=== PATIENT | female | born 1955 | race Caucasian/White ===

== ENCOUNTER 2018-01-13 15:07 | Emergency (ER) | payer MEDICAID ==
[2018-01-13 15:08] VITALS: BMI 23.4
[2018-01-13] MEDS ORDERED: Sodium Chloride 0.9% 500 ML IV ONE (15:59)
[2018-01-13 16:14] LABS: BASO % 0.7 % (0.0-2.0); EOS # 0.5 K/uL (0.0-0.7); EOS % 7.8 % (0.0-4.0); HEMOGLOBIN 12.1 g/dL (11.0-16.0); LYMPH # 3.3 K/uL (1.0-4.3); LYMPH % 55.8 % (20.0-40.0); MEAN CELL VOLUME 85.7 fL (81.0-99.0); MEAN PLATELET VOLUME 6.4 fL (7.2-11.7); MONO # 0.4 K/uL (0.0-0.8); MONO % 6.5 % (0.0-10.0); NEUT # 1.7 K/uL (1.8-7.0); NEUT % 29.2 % (50.0-75.0); NRBC % 0.1 % (0.0-2.0); RBC 4.04 Mil/uL (3.80-5.20); RED CELL DISTRIBUTION WIDTH 12.1 % (11.5-14.5)
[2018-01-13 16:26] LABS: ALB/GLOB RATIO 1.4 (1.0-2.1); ALBUMIN 4.4 g/dL (3.5-5.0); ALT/SGPT 21 U/L (9-52); AST/SGOT 21 U/L (14-36); BLOOD UREA NITROGEN 9 mg/dL (7-17); CALCIUM 9.6 mg/dl (8.6-10.4); GFR NON-AFRICAN AMERICAN > 60
--- NOTE | 2018-01-13 16:38 | RAD ---
Date of service: 01/13/2018 HISTORY: dizziness COMPARISON: No prior. FINDINGS: LUNGS: No active pulmonary disease. PLEURA: No significant pleural effusion identified, no pneumothorax apparent. CARDIOVASCULAR: Normal. OSSEOUS STRUCTURES: Thoracic spondylosis. VISUALIZED UPPER ABDOMEN: Normal. OTHER FINDINGS: None. IMPRESSION: No acute cardiopulmonary pathology.
--- NOTE | 2018-01-13 16:45 | C.PDOC ---
History Of Present Illness 62-year-old female presents to the ED for evaluation of dizziness which began today. Patient states she woke up this morning and started feeling dizzy as she was ambulating around. She describes a room spinning sensation which caused her to fall backward and hit her head. Patient is unsure of whether she lost consciousness. Patient denies shortness of breath, abdominal pain, nausea, vomiting, focal weakness. Time Seen by Provider: 01/13/18 15:39 Chief Complaint (Nursing): Dizziness/Lightheaded History Per: Patient History/Exam Limitations: no limitations Onset/Duration Of Symptoms: Hrs Current Symptoms Are (Timing): Still Present Additional History Per: Patient Past Medical History Reviewed: Historical Data, Nursing Documentation, Vital Signs Vital Signs: Last Vital Signs Temp 97.9 F 01/13/18 15:22 Pulse 84 01/13/18 15:22 Resp 20 01/13/18 15:22 BP 136/81 01/13/18 15:22 Pulse Ox 98 01/13/18 15:22 - Medical History PMH: Asthma, Hypercholesterolemia, Hypothyroidism, Migraine, Rheumatoid Arthritis Denies: Chronic Kidney Disease Surgical History: No Surg Hx - [facility] Procedures CLOSED ENDOSCOPIC BIOPSY OF LARGE INTESTINE (06/12/13) ESOPHAGOGASTRODUODENOSCOPY [EGD] W/CLOSED BIOPSY (06/26/13) Family History: States: Unknown Family Hx - Social History Hx Alcohol Use: No Hx Substance Use: No - Immunization History Hx Tetanus Toxoid Vaccination: No Hx Influenza Vaccination: No Review Of Systems Constitutional: Negative for: Fever, Chills Cardiovascular: Negative for: Chest Pain Respiratory: Negative for: Cough, Shortness of Breath, SOB with Excertion, Wheezing Gastrointestinal: Negative for: Nausea, Vomiting, Abdominal Pain Genitourinary: Negative for: Dysuria Neurological: Positive for: Dizziness. Negative for: Weakness Psych: Negative for: Anxiety, Depression Physical Exam - Physical Exam Appears: Non-toxic, No Acute Distress Skin: Normal Color, Warm, Dry Head: Atraumatic, Normacephalic Eye(s): bilateral: Other (horizontal nystagmus ) Oral Mucosa: Moist Neck: Normal ROM, Supple Chest: Symmetrical, No Deformity, No Tenderness Cardiovascular: Rhythm Regular, No Murmur Respiratory: Normal Breath Sounds, No Rales, No Rhonchi, No Wheezing Extremity: Normal ROM, Capillary Refill (less than 2 seconds ) Neurological/Psych: Oriented x3, Normal Speech, Normal Cognition Gait: Steady ED Course And Treatment - Laboratory Results Result Diagrams: 01/13/18 16:09 01/13/18 16:09 ECG: Interpreted By Me, Viewed By Me ECG Rhythm: Sinus Rhythm Interpretation Of ECG: Normal Sinus Rhythm at rate 83bpm. Normal intervals. No ST changes. Rate From EC O2 Sat by Pulse Oximetry: 98 (on RA) Pulse Ox Interpretation: Normal - Other Rad CXR X-Ray: Viewed By Me, Read By Radiologist Interpretation: Date of service: 01/13/2018. HISTORY: dizziness. COMPARISON: No prior. FINDINGS: LUNGS: No active pulmonary disease. PLEURA: No sig nificant pleural effusion identified, no pneumothorax apparent. CARDIOVASCULAR: Normal. OSSEOUS STRUCTURES: Thoracic spondylosis. VISUALIZED UPPER ABDOMEN: Normal. OTHER FINDINGS: None. IMPRESSION: No acute cardiopulmonary pathology. Medical Decision Making Medical Decision Making: Impression: 62 year old female with dizziness Plan: * bloodwork * CXR * CT Head * EKG * Antivert PO * IV Fluids * reassess and disposition Progress: Bloodwork, CXR, CT Head, EKG ordered and reviewed. Antivert PO and IV Fluids given. 5:01PM CT head: No intracranial hemorrhage or mass effect. No calvarial fracture. Moderate cerebral atrophy. Paranasal sinus inflammatory changes Cxray: No acute cardiopulmonary pathology. Labs reviewed. Patient persistently dizzy when ambulating. Will transfer to tele observation. Disposition - Disposition Disposition: HOSPITALIZED Disposition Time: 17:19 Condition: FAIR Forms: [facility] [employer] (Indonesian) - Clinical Impression Clinical Impression: Dizziness - Scribe Statement The provider has reviewed the documentation as recorded by the Scribe (Suzie Sage) Provider Attestation: All medical record entries made by the Scribe were at my direction and personally dictated by me. I have reviewed the chart and agree that the record accurately reflects my personal performance of the history, physical exam, medical decision making, and the department course for this patient. I have also personally directed, reviewed, and agree with the discharge instructions and d isposition.
--- NOTE | 2018-01-13 16:58 | CT ---
Date of service: 01/13/2018 PROCEDURE: CT HEAD WITHOUT CONTRAST. HISTORY: head injury COMPARISON: None available. TECHNIQUE: Axial computed tomography images were obtained through the head/brain without intravenous contrast. Radiation dose: Total exam DLP = mGy-cm. This CT exam was performed using one or more of the following dose reduction techniques: Automated exposure control, adjustment of the mA and/or kV according to patient size, and/or use of iterative reconstruction technique. FINDINGS: HEMORRHAGE: No intracranial hemorrhage. BRAIN: No mass effect or edema. There is generalized cerebral atrophy. No chronic microvascular ischemic changes are appreciated. VENTRICLES: Unremarkable. No hydrocephalus. CALVARIUM: A benign bifrontal internal cortical hyperostoses noted. PARANASAL SINUSES: Ethmoidal and maxillary inflammatory changes noted. A prominent developmental right pneumatized middle turbinates also suggested. MASTOID AIR CELLS: Unremarkable as visualized. No inflammatory changes. OTHER FINDINGS: None. IMPRESSION: No intracranial hemorrhage or mass effect. No calvarial fracture. Moderate cerebral atrophy. Paranasal sinus inflammatory changes
[2018-01-13 17:59] VITALS: O2SAT 99
[2018-01-13 19:41] VITALS: BP 140/70; PULSE 68; RESP 17; TEMP 97.9
--- NOTE | 2018-01-13 22:09 | CP.PCM.HP ---
Past Patient History - Past Medical History & Family History Past Medical History?: Yes - Past Social History Smoking Status: Never Smoked - CARDIAC Hx Hypercholesterolemia: Yes - PULMONARY Hx Asthma: Yes - NEUROLOGICAL Hx Migraine: Yes - HEENT Hx HEENT Problems: Yes Hx Cataracts: Yes Hx Glaucoma: Yes (RIGHT EYE) Hx Macular Degeneration: (RIGHT EYE) - RENAL Hx Chronic Kidney Disease: No - ENDOCRINE/METABOLIC Hx Hypothyroidism: Yes - HEMATOLOGICAL/ONCOLOGICAL Hx Blood Disorders: No - INTEGUMENTARY Hx Dermatological Problems: No - MUSCULOSKELETAL/RHEUMATOLOGICAL Hx Rheumatoid Arthritis: Yes - GASTROINTESTINAL Hx Gastrointestinal Disorders: Yes Other/Comment: HX OF COLON POLYPS - GENITOURINARY/GYNECOLOGICAL Hx Genitourinary Disorders: No - PSYCHIATRIC Hx Substance Use: No - SURGICAL HISTORY Hx Surgeries: Yes Hx Section: Yes (X3) Hx Hysterectomy: Yes Other/Comment: 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 - ANESTHESIA Hx Anesthesia: Yes Hx Anesthesia Reactions: No Hx Malignant Hyperthermia: No Meds Allergies/Adverse Reactions: Allergies Allergy/AdvReac Type Severity Reaction Status Date / Time No Known Allergies Allergy Verified 01/13/18 15:25 Physical Exam - Constitutional Appears: Well - Head Exam Head Exam: ATRAUMATIC, NORMAL INSPECTION, NORMOCEPHALIC - Eye Exam Eye Exam: EOMI, Normal appearance, PERRL Pupil Exam: NORMAL ACCOMODATION, PERRL - ENT Exam ENT Exam: Mucous Membranes Moist, Normal Exam - Neck Exam Neck exam: Positive for: Normal Inspection - Respiratory Exam Respiratory Exam: Decreased Breath Sounds - Cardiovascular Exam Cardiovascular Exam: REGULAR RHYTHM, +S1, +S2 - GI/Abdominal Exam GI & Abdominal Exam: Diminished Bowel Sounds, Soft - Rectal Exam Rectal Exam: Deferred Results - Vital Signs Recent Vital Signs: Last Vital Signs Temp 97.9 F 01/13/18 19:40 Pulse 68 01/13/18 19:40 Resp 17 01/13/18 19:40 BP 140/70 01/13/18 19:40 Pulse Ox 99 01/13/18 19:40 - Labs Result Diagrams: 01/13/18 16:09 01/13/18 16:09 Labs: Laboratory Results - last 24 hr 01/13/18 01/13/18 01/13/18 15:21 16:09 16:09 WBC 6.0 RBC 4.04 Hgb 12.1 Hct 34.6 MCV 85.7 D MCH 30.0 MCHC 35.0 RDW 12.1 Plt Count 365 MPV 6.4 L Neut % (Auto) 29.2 L Lymph % (Auto) 55.8 H [place] % (Auto) 6.5 Eos % (Auto) 7.8 H Baso % (Auto) 0.7 Neut # (Auto) 1.7 L Lymph # (Auto) 3.3 [place] # (Auto) 0.4 Eos # (Auto) 0.5 Baso # (Auto) 0.0 Sodium 138 Potassium 3.9 Chloride 100 Carbon Dioxide 27 Anion Gap 15 BUN 9 Creatinine 0.5 L Est GFR ( Amer) > 60 Est GFR (Non-Af Amer) > 60 POC Glucose (mg/dL) 184 H Random Glucose 172 H Calcium 9.6 Phosphorus 4.8 H Magnesium 2.2 Total Bilirubin 0.6 AST 21 ALT 21 Alkaline Phosphatase 62 Troponin I < 0.0120 Total Protein 7.5 Albumin 4.4 Globulin 3.1 Albumin/Globulin Ratio 1.4
--- NOTE | 2018-01-14 15:40 | CARD ---
APPROVED REPORT Date of service: 01/13/2018 EKG Measurement Heart [id number] <Conclusion> Normal sinus rhythm Normal ECG
== END 2018-01-13 19:40 | disposition left against medical advice (07) ==
LOC: C.ER 15:07 → UNDOADMOB 17:17 → C.9E 17:17 → C.ER 19:40 → UNDODISOB 19:41 → C.5S 21:43 → C.9E 21:43
DX: R42 Dizziness and giddiness (principal)
CPT/HCPCS: 70450; 71045; 80053; 82948; 83735; 84100; 84484; 85025; 93005; 96360; 99285; J7040